=== PATIENT | female | born 1955 | race Caucasian/White ===

== ENCOUNTER 2021-11-04 11:32 | Emergency (ER) | payer BC | END 2021-11-04 13:10 | disposition home or self-care (01) | LOC: KA.ED 11:32 | DX: S09.90XA Unspecified injury of head, initial encounter (principal); E78.00 Pure hypercholesterolemia, unspecified; Z88.0 Allergy status to penicillin; Z79.899 Other long term (current) drug therapy; Z79.82 Long term (current) use of aspirin; W00.9XXA Unspecified fall due to ice and snow, initial encounter | CPT/HCPCS: 70450; 72125; 99283; 99283-25 ==